=== PATIENT | female | born 1955 | race Caucasian/White ===

== ENCOUNTER → 2023-07-26 07:34 | Outpatient (CLI) | payer MEDICARE, SELFPAY ==
--- NOTE | 2023-07-26 | DI.NM.S_ITS ---
PROCEDURE: NM HIDA NO EJECTION FRACTION RADIOPHARMACEUTICAL: 5.5 mCi Tc-99m mebrofenin IV. INDICATIONS: ABD PAIN TECHNIQUE: Following intravenous administration of Tc-99m mebrofenin, sequential anterior abdominal images were obtained through at least 60 minutes. COMPARISON: None. FINDINGS: There is normal tracer uptake and excretion by the liver. There is normal visualization of intrahepatic ducts, common bile duct, and normal tracer excretion into duodenum. Gallbladder was not visualized in the initial 60 minutes. Delayed static images at 3.5- hours also fail to show definitive gallbladder filling. IMPRESSION: Nonfilling of gallbladder. The findings are suspicious for acute cholecystitis. Please correlate with clinical findings. If clinically indicated, ultrasound would be helpful. Dictated by: Harpreet Ramos M.D. on 07/26/2023 at 12:38 Approved by: Harpreet Ramos M.D. on 07/26/2023 at 12:44
== END ==
PROVIDERS: Referring Provider Internal Medicine; Visit Provider Internal Medicine
DX: R10.9 Unspecified abdominal pain (principal)
CPT/HCPCS: 78226; A9537

== ENCOUNTER 2023-09-11 11:52 | Day surgery (SDC) | payer MEDICARE, SELFPAY ==
[2023-09-05 12:03] VITALS: BMI 30.7
[2023-09-11] VITALS (10 sets, daily range): BP systolic 113–137; BP diastolic 54–84; PULSE 62–89; RESP 12–16; TEMP 36.1–36.7; O2SAT 92–96; BMI 29.6
--- NOTE | 2023-09-11 | PATH_ITS ---
[facility] Accession Number: [id number] No. of containers..01 Tissue . 01 Material submitted: . gallbladder - GALLBLADDER . 01 Diagnosis: Gallbladder, Cholecystectomy: Mild, chronic calculous cholecystitis with reactive changes. Negative for dysplasia and malignancy. [facility] 09/25/2023 1425 Local . 01 Electronically signed: . José Miguel García MD, Pathologist NPI- [id number] . 01 Gross description: . The specimen is received in formalin labeled with the patient's name, , and gallbladder, consists of a disrupted gallbladder measuring 10.0 x 2.6 x 2.5 cm with a full thickness defect measuring 1.6 cm in greatest dimension. The serosa is franco and roughened, the cystic duct margin is inked blue, and no pericystic lymph node is identified. The lumen contains multiple yellow faceted calculi measuring up to 2.3 cm in greatest dimension, grossly obstructing the cystic duct, and admixed with red-franco mucoid bile. The mucosa is franco and trabecular with no yellow discoloration, polyps, or lesions identified. The campos average 0.2 cm thick, and petroleum products sales representative sections to include the cystic duct margin and full thickness sections are submitted in cassette A1. ([id number]) /MRV 09/12/2023 1702 Local . 01 Pathologist provided ICD-10: K80.20 . 01 CPT . 414156 Specimen Comment: A courtesy copy of this report has been sent to [phone] Performed at: 01 [facility] [address] [place] [address] [address] [facility], [place], [place] [id number] MD Trung Leon MD Phone: [phone]
--- NOTE | 2023-09-11 12:29 | PM.PREOP ---
Pre-operative Note COVID-19 COVID-19 status: Not tested Interval Note History & Physical reviewed/Exam performed by Physician: Yes Changes to H&P: No ASA Class (for procedural sedation): II
[2023-09-11] MEDS: LACTATED RINGERS 1,000 ML 42 ML IV (12:36)
--- NOTE | 2023-09-11 12:46 | SUR.OPER ---
Supine on padded OR bed, head on pillow, safety belt at thigh, left arm padded and tucked at side. Right arm secured on padded arm board <90 degrees abduction. Legs uncrossed. Padded footboard in place. Tape over blanket to secure lower legs.
[2023-09-11] MEDS: CEFAZOLIN 2 GM/100 ML PREMIX 100 ML IV (13:10)
[2023-09-11] MEDS: BUPIVACAINE 0.5% (PF) 30 ML, EPINEPHrine 0.15 MG INJ (13:24)
--- NOTE | 2023-09-11 15:08 | PM.OP.1 ---
Operative Date/Time/Diagnoses Date of procedure: 09/11/23 Time of procedure: 15:09 Pre-op diagnosis: Symptomatic cholelithiasis Post-op diagnosis: same Procedure & Clinicians Procedure: Laparoscopic cholecystectomy Same procedure as scheduled: Yes Surgeon: Bryn Nance Anesthesia Type: General Operative Notes Procedure in detail: The patient was given preoperative antibiotics. The patient was brought to the operating room and placed on the table in the supine position. General endotracheal anesthesia was induced. The abdomen was prepped and draped. A time-out was performed. We made a 1 cm infraumbilical incision. We dissected down to the base of the umbilical stalk using cautery. We grasped the umbilical stalk with a Radha clamp to elevate the abdominal wall. We scored the fascia in the midline with cautery. We pierced the peritoneum with a Peon clamp. The Carmine port was placed and the abdomen was insufflated to 15 mmHg. A 5 mm 30 degree laparoscopic was inserted. There was no evidence of any injury from the entry. Next, we placed 5 mm ports in the subxiphoid position and right upper quadrant at the midclavicular line and anterior axillary line. The patient was then positioned in reverse Trendelenburg and the table was tilted to the left. The gallbladder was grasped at the dome and retracted cephalad. There were extensive adhesions of visceral adipose tissue over the gallbladder. These were dissected off the gallbladder using a combination of cautery and blunt dissection. We then dissected the cystic structures with a combination of hook cautery and blunt dissection. There was evidence of a large stone impacted in the infundibulum. Gallbladder did tear and attempt was made to pull the stone out with a tenaculum grasper but it was firmly lodged in the infundibulum. Eventually we were able to dissect around the infundibulum and cystic duct. We placed clips on the cystic duct and artery and divided the cystic duct and artery sharply between the clips. The gallbladder was then dissected off the liver and placed in a specimen retrieval bag. We irrigated the right upper quadrant and all the aspirate returned clear. We then removed the 5 mm ports under direct vision we removed the Carmine port. We then injected some local into the fascia and closed the fascia with 2 interrupted 0 Vicryl sutures. The skin incisions were closed with 4-0 Monocryl and Steri-Strips were applied. Band-Aids were applied over the Steri-Strips. EBL: 20 mL Specimen: Gallbladder and contents Post-operative Condition: stable Disposition: PACU
[2023-09-11] MEDS: ONDANSETRON 4 MG/2 ML INJ IV (15:18)
[2023-09-11] MEDS: OXYCODONE/ACETAMINOPHEN 5/325 TABLET 1 TAB PO (15:18)
[2023-09-11] MEDS: HYDROMORPHONE 1 MG INJ IV ×2 (15:39→15:47)
[2023-09-11] MEDS: PROMETHAZINE 25 MG TABLET 12.5 MG PO (15:42)
== END 2023-09-11 16:20 | disposition home or self-care (01) ==
PROVIDERS: PCP Internal Medicine; Referring Provider Surgery; Visit Provider Surgery
PROC: 0FT44ZZ Resection of Gallbladder, Percutaneous Endoscopic Approach (ICD-10-PCS; CPT 47562; principal; 2023-09-11 13:15)
DX: K80.10 Calculus of gallbladder with chronic cholecystitis without obstruction (principal); I48.91 Unspecified atrial fibrillation; Z79.01 Long term (current) use of anticoagulants
CPT/HCPCS: 47562; J0171; J0690; J1100; J1170; J2250; J2405; J3010

== ENCOUNTER 2023-12-08 16:04 | Emergency (ER) | payer MEDICARE, SELFPAY ==
[2023-12-08] VITALS (10 sets, daily range): BP systolic 124–147; BP diastolic 63–76; PULSE 79–91; RESP 11–18; TEMP 36.4; O2SAT 94–97; BMI 32.6
[2023-12-08 16:42] LABS: Add Manual Diff / Slide Review NO; Basophils Absolute Auto 100 /uL (0-100); Basophils Percent Auto 0.6 % (0-2); Eosinophils Absolute Auto 100 /uL (0-450); Eosinophils Percent Auto 1.2 % (2-4); Hematocrit 39.7 % (36-46); Hemoglobin 13.3 g/dL (12.0-16.0); Lymphocytes Absolute Auto 1700 /uL (1100-4500); Lymphocytes Percent Auto 15.2 % (25-40); Mean Corpuscular HGB Conc 33.4 % (30-36); Mean Corpuscular Hemoglobin 28.6 PG (26-34); Mean Corpuscular Volume 85.7 fL (80-100); Monocytes Absolute Auto 600 /uL (0-900); Monocytes Percent Auto 5.6 % (3-14); Neutrophils Absolute Auto 8800 /uL (1500-7000); Neutrophils Percent Auto 77.4 % (50-75); Platelet Count 226 X10^3/uL (150-400); Red Blood Cell Count 4.64 X10^6/uL (4.0-5.2); Red Cell Distribution Width 13.5 % (11.6-14.8); White Blood Cell Count 11.4 X10^3/uL (4.5-11.0)
[2023-12-08 16:44] LABS: Alanine Aminotransferase 130 IU/L (<35); Albumin 4.4 g/dL (3.5-5.0); Albumin Globulin Ratio 1.4 (1.0-2.8); Alkaline Phosphatase 117 U/L (38-126); Blood Urea Nitrogen 15 mg/dL (7-17); Calcium 9.4 mg/dL (8.4-10.2); Carbon Dioxide 27 mmol/L (22-32); Chloride 97 mmol/L (98-107); Estimated Glomerular Filt Rate > 60 mL/min (>60); Globulin 3.2 g/dL (1.7-4.1); Glucose 161 mg/dL (80-110); INR 1.1 (0.9-1.3); Lipase 128 U/L (23-300); Prothrombin Time 12.9 SECONDS (9.4-12.5); Sodium 134 mmol/L (137-145); Total Protein 7.6 g/dL (6.3-8.2)
[2023-12-08 16:45] LABS: HEMOLYSIS 57 (0-50)
[2023-12-08 16:46] LABS: Potassium 4.4 mmol/L (3.4-5.1)
[2023-12-08 16:47] LABS: Aspartate Aminotransferase 294 IU/L (14-36)
--- NOTE | 2023-12-08 17:38 | DI.CT.S_ITS ---
PROCEDURE: CT ABDOMEN PELVIS W CON INDICATIONS: RUQ PAIN, ELEVATED LIVER ENZYMES TECHNIQUE: After the administration of intravenous contrast, axial sections acquired from the lung bases to the pubic symphysis. Coronal and sagittal reformats were performed. For radiation dose reduction, the following was used: automated exposure control, adjustment of mA and/or kV according to patient size. COMPARISON: None. FINDINGS: Image quality: Diagnostic. Lower Chest: No significant findings. ABDOMEN: Liver: No solid mass. Gallbladder: Cholecystectomy. Biliary ducts: The common bile duct measures up to 11 mm, which is likely within normal limits for a post cholecystectomy patient. Pancreas: No ductal dilation. Spleen: Size is within normal limits. Adrenal Glands: No adrenal nodules. Kidneys and Ureters: No hydronephrosis. No solid mass. No complex renal cystic lesion which requires follow up. Stomach and Bowel: This patient has bowel malrotation, with the duodenum not crossing the midline proximally. The small bowel is largely seen on the right and the colon is largely seen on the left. No dilated loops of small bowel are seen. The cecum is not dilated. The stool burden within the colon is not excessive. Distal colonic diverticulosis is seen, without findings of active diverticulitis. The stomach is decompressed at the time of this study, limiting its evaluation. Peritoneum: No abnormal intraperitoneal fluid. No free air. Ventral Wall: No significant ventral hernia. Abdominal Nodes: No retroperitoneal or mesenteric adenopathy by size criteria. Vessels: Aorta and inferior vena cava are normal in size. The superior mesenteric vein is seen anterior and to the left of the superior mesenteric artery. PELVIS: Pelvic Organs: The uterus appears normal for age. No adnexal masses are seen. The IUD is seen at its expected location. Bladder: No bladder wall thickening, accounting for underdistention. Pelvic Nodes: No enlarged lymph nodes. Miscellaneous: No inguinal hernias are seen. Bones: No aggressive osseous abnormality. Focal L5-S1 degenerative change is seen. Milder degenerative changes are seen elsewhere. IMPRESSION: Status post cholecystectomy, without biliary dilatation. Note is made of bowel malrotation, with the small bowel largely seen on the right and the colon largely seen on the left. There is reversal of the superior mesenteric vein and superior mesenteric artery. Additional findings: Diverticulosis, without active diverticulitis The IUD is seen at its expected location. Focal L5-S1 degenerative change Dictated by: Diomedes Welsh M.D. on 12/08/2023 at 17:31 Approved by: Diomedes Welsh M.D. on 12/08/2023 at 17:36
--- NOTE | 2023-12-08 17:49 | ED_ITS ---
HPI - Abdominal Pain General Chief Complaint: Abdominal Pain Stated Complaint: Upper abd pain/ back pain/ vomiting Time Seen by Provider: 12/08/23 17:37 Source: patient Mode of arrival: EMS History of Present Illness HPI narrative: 68-year-old female with history of atrial fibrillation presents for right upper quadrant abdominal pain with nausea and vomiting that began earlier this afternoon. Patient states that she drank a protein shake, which she has had in the past, and afterwards felt very severe right-sided pain and threw up. States she still has mild right sided pain. Previous cholecystectomy in August of 2023, which she has been recovering from without difficulty. Related Data Home Medications Medication Instructions Recorded Confirmed diltiazem HCl 120 mg 120 mg PO ONCE 09/05/23 12/08/23 capsule,extended release 12 hr diltiazem HCl 240 mg 240 mg PO DAILY 09/05/23 12/08/23 capsule,extended release 24 hr fluoxetine 20 mg tablet 20 mg PO DAILY 09/05/23 12/08/23 trazodone 100 mg tablet 100 mg PO DAILY 09/05/23 12/08/23 diphenhydramine HCl 25 mg tablet 25 mg PO DAILY 09/11/23 12/08/23 dabigatran etexilate 150 mg capsule 150 mg PO BID 12/08/23 12/08/23 rosuvastatin 10 mg tablet 10 mg PO QPM 12/08/23 12/08/23 Previous Rx's Medication Instructions Recorded ondansetron 4 mg disintegrating 4 mg PO Q8H PRN nausea and 12/08/23 tablet vomiting #30 tabs tramadol 50 mg tablet 50 mg PO Q8H PRN pain #14 tabs 12/08/23 Allergies Allergy/AdvReac Type Severity Reaction Status Date / Time ibuprofen Allergy Verified 12/08/23 16:27 Penicillins Allergy Verified 12/08/23 16:27 Review of Systems Review of Systems Narrative: Negative except as noted above Patient History Medical History History of gestational diabetes Diabetes Diverticulosis History of COVID-19 Hx of ectopic Depression Anxiety Atrial fibrillation Surgical History Hx laparoscopic cholecystectomy H/O wrist surgery H/O section Family History Mother Hypertension Heart disease Stroke Cancer Social History Smoking Status: Never smoker Smoking Status: Never smoker alcohol intake frequency: holidays/special occasions only Substance Use Type: does not use Exam Initial Vital Signs Initial Vital Signs: Vital Signs Pulse Rate 85 12/08/23 16:08 Pulse Oximetry 97 12/08/23 16:08 Const: Awake, alert, no acute distress, nontoxic appearing Cardiac: regular rate, regular rhythm RESP: unlabored, clear bilaterally, no wheezing GI: Atraumatic, soft, nontender, nondistended, negative murphys's sign MSK: Atraumatic, full range of motion, pulses equal Skin: Warm, Dry, intact, no rashes Neuro: AO x3, CN II-XII grossly intact, moves all extremities Psych: affect normal, mood normal, not suicidal, not homicidal Course Orders Ordered: ED Orders 12/08/23 16:15 Complete Blood Count AUTO DIFF Stat Comprehensive Metabolic Panel Stat Lipase Stat Prothrombin Time INR Stat 12/08/23 16:18 EKG-12 Lead Stat 12/08/23 17:38 CT abdomen pelvis w con Stat Discontinued Medications Ondansetron HCl (Ondansetron 4 Mg Odt) 4 mg PO NOW PRN PRN Reason: Nausea And Vomiting Ondansetron HCl (Ondansetron 4 Mg/2 Ml Inj) 4 mg IV NOW PRN PRN Reason: Nausea And Vomiting Vital Signs Vital signs: Vital Signs - 8 hr 12/08/23 16:08 12/08/23 16:09 12/08/23 16:09 Temperature Pulse Rate 85 79 Respiratory Rate Blood Pressure 147/73 H Pulse Oximetry 97 97 Oxygen Delivery Method 12/08/23 16:19 12/08/23 16:30 12/08/23 17:00 Temperature 97.6 F Pulse Rate 83 82 85 Respiratory Rate 18 11 L 12 Blood Pressure 147/73 H Pulse Oximetry 97 96 96 Oxygen Delivery Method Room Air 12/08/23 17:18 12/08/23 17:18 12/08/23 17:30 Temperature Pulse Rate 83 Respiratory Rate 15 Blood Pressure 134/76 124/69 Pulse Oximetry 95 Oxygen Delivery Method 12/08/23 17:30 12/08/23 17:58 12/08/23 17:58 Temperature Pulse Rate 82 80 Respiratory Rate 13 16 Blood Pressure 133/63 Pulse Oximetry 94 97 Oxygen Delivery Method 12/08/23 18:00 12/08/23 18:00 12/08/23 18:30 Temperature Pulse Rate 87 Respiratory Rate 14 Blood Pressure 128/71 138/63 Pulse Oximetry 97 Oxygen Delivery Method 12/08/23 18:30 Temperature Pulse Rate 91 H Respiratory Rate 13 Blood Pressure Pulse Oximetry 95 Oxygen Delivery Method MDM - Abdominal Pain Differential Diagnosis Differential diagnosis: Likely abdominal pain, acute appendicitis and calculus of kidney Lab Data 12/08/23 16:15 12/08/23 16:15 Labs: Lab Results 12/08/23 Range/Units 16:15 WBC 11.4 H (4.5-11.0) X10^3/uL RBC 4.64 (4.0-5.2) X10^6/uL Hgb 13.3 (12.0-16.0) g/dL Hct 39.7 (36-46) % MCV 85.7 (80-100) fL MCH 28.6 (26-34) PG MCHC 33.4 (30-36) % RDW 13.5 (11.6-14.8) % Plt Count 226 (150-400) X10^3/uL Neut % (Auto) 77.4 H (50-75) % Lymph % (Auto) 15.2 L (25-40) % [place] % (Auto) 5.6 (3-14) % Eos % (Auto) 1.2 L (2-4) % Baso % (Auto) 0.6 (0-2) % Neut # (Auto) 8800 H (0297-2383) /uL Lymph # (Auto) 1700 (9357-7173) /uL [place] # (Auto) 600 (0-900) /uL Eos # (Auto) 100 (0-450) /uL Baso # (Auto) 100 (0-100) /uL PT 12.9 H (9.4-12.5) SECONDS INR 1.1 (0.9-1.3) Sodium 134 L (137-145) mmol/L Potassium 4.4 (3.4-5.1) mmol/L Chloride 97 L (98-107) mmol/L Carbon Dioxide 27 (22-32) mmol/L BUN 15 (7-17) mg/dL Creatinine 0.60 (0.52-1.04) mg/dL Estimated GFR > 60 (>60) mL/min BUN/Creatinine Ratio 25.0 H (6-22) Glucose 161 H (80-110) mg/dL Calcium 9.4 (8.4-10.2) mg/dL Total Bilirubin 1.0 (0.2-1.3) mg/dL AST 294 H (14-36) IU/L ALT 130 H (<35) IU/L Alkaline Phosphatase 117 (38-126) U/L Total Protein 7.6 (6.3-8.2) g/dL Albumin 4.4 (3.5-5.0) g/dL Globulin 3.2 (1.7-4.1) g/dL Albumin/Globulin Ratio 1.4 (1.0-2.8) Lipase 128 (23-300) U/L [facility] Narrative Medical decision making narrative: Well-appearing patient with right upper quadrant pain and vomiting prior to arrival. On my exam patient resting comfortably in bed, abdomen is soft, there is no reproducible tenderness to light or deep palpation, no peritoneal signs. We will order laboratory work and CT imaging. Laboratory work shows WBC 11.4, could be stress reaction secondary to vomiting. Electrolytes within normal limits, there is elevation in patient's liver enzymes with AST 294 and ALT 130. There are no priors for comparison. CT of the abdomen and pelvis reviewed, no acute abnormalities identified. Incidental note made of malrotation of the intestines. Discussed case with on-call general surgeon Dr. Elias, who said this was an incidental finding and in very low body weight patient's this may cause chronic abdominal pain, but in a patient with a BMI of 33 this is unlikely related to her symptoms. Patient has been informed of all lab and imaging findings. No obvious cause of symptoms found at this time, however no indication for hospitalization. Patient informed of her elevated liver enzymes, she states that she will follow with her primary care physician on Sunday morning and will bring up the liver enzymes to her physician. Patient counseled to return to the emergency department if her pain returns or worsens. ED return precautions discussed at bedside. Patient expressed understanding of the plan and is in agreement at this time. All questions answered at the time of discharge. Discharge Plan Departure Patient Disposition: Home Clinical Impression: Abdominal pain, Elevated liver enzymes Instructions: DI for Abdominal Pain-Adult Activity Restrictions/Additional Instructions: I do not know the cause of your abdominal pain. Your liver enzymes are slightly elevated, I do not have any priors for comparison. Your CT did not show any abnormalities to explain your right upper quadrant pain. Please follow up with your primary care physician regarding your liver enzymes. If you notice return of your symptoms or if they worsen please return to the emergency department for repeat evaluation. Prescriptions: New tramadol 50 mg tablet 50 mg PO Q8H PRN (Reason: pain) Qty: 14 0RF ondansetron 4 mg tablet,disintegrating 4 mg PO Q8H PRN (Reason: nausea and vomiting) Qty: 30 0RF No Action diltiazem HCl 240 mg capsule,extended release 24hr 240 mg PO DAILY diltiazem HCl 120 mg capsule,extended release 12 hr 120 mg PO ONCE fluoxetine 20 mg tablet 20 mg PO DAILY trazodone 100 mg tablet 100 mg PO DAILY diphenhydramine HCl 25 mg Tablet 25 mg PO DAILY dabigatran etexilate 150 mg Capsule 150 mg PO BID rosuvastatin 10 mg tablet 10 mg PO QPM Referrals: Rajesh Mcconnell MD [Primary Care Provider] - Stand Alone Forms: Patient Portal/API
== END 2023-12-08 19:11 | disposition home or self-care (01) ==
PROVIDERS: Emergency Medicine; Emergency Provider Emergency Medicine; PCP Internal Medicine
DX: R10.11 Right upper quadrant pain (principal); R74.8 Abnormal levels of other serum enzymes; R11.2 Nausea with vomiting, unspecified
CPT/HCPCS: 74177; 80053; 83690; 85025; 85610; 93005; 99281; 99284; Q9967

== ENCOUNTER → 2023-12-31 07:03 | Outpatient (CLI) | payer MEDICARE, SELFPAY ==
--- NOTE | 2023-12-31 07:58 | DI.MRI.S_ITS ---
PROCEDURE: MR ABDOMEN LIVER PROTOCOL INDICATIONS: Abnormal results of liver function studies TECHNIQUE: Coronal HASTE, axial 2D FLASH in- and iid-uj-qcoys; axial breath-hold T2 FSE. Dynamic axial VIBE during the administration of contrast; post-contrast coronal VIBE or 2D FLASH with fat saturation from the hepatic dome to the iliac crests. Optional diffusion weighted imaging and ADC may be performed. COMPARISON: [facility], CT, CT ABDOMEN PELVIS W CON, 12/08/2023, 17:49. FINDINGS: Image quality: Diagnostic. Lung bases: Right lung base atelectasis. No pleural effusion. Tiny hiatal hernia. Liver: No solid mass. No suspicious enhancement or restricted diffusion. Gallbladder: Absent. Biliary ducts: Within normal limits in this post cholecystectomy patient. No filling defect. Pancreas: No ductal dilation. Tiny cyst at the body measuring 0.4 cm, (03/14). Spleen: Size is within normal limits. Adrenal Glands: No adrenal nodules. Kidneys and Ureters: No hydronephrosis. No solid mass. No complex renal cystic lesion which requires follow up. Stomach and Bowel: Normal colonic caliber, without significant wall thickening. Diverticulosis. Bowel malrotation. Peritoneum: No abnormal intraperitoneal fluid. No free air. Ventral Wall: No hernia. Abdominal Nodes: No retroperitoneal or mesenteric adenopathy by size criteria. Vessels: Aorta and inferior vena cava are normal in size. Bones: No aggressive osseous abnormality. IMPRESSION: 1. No focal liver lesion. 2. Post cholecystectomy. Bile ducts are within normal limits. 3. No pancreatic ductal dilatation. Tiny cyst in the body of the pancreas measuring 0.4 cm. 4. Bowel malrotation. Tiny hiatal hernia. Dictated by: Denys Aquino M.D. on 12/31/2023 at 8:33 Approved by: Denys Aquino M.D. on 12/31/2023 at 8:44
== END ==
LOC: MRI 07:03
PROVIDERS: PCP Internal Medicine; Referring Provider Internal Medicine; Visit Provider Internal Medicine
DX: R94.5 Abnormal results of liver function studies (principal); K57.90 Diverticulosis of intestine, part unspecified, without perforation or abscess without bleeding; Z90.49 Acquired absence of other specified parts of digestive tract
CPT/HCPCS: 74183; A9579

== ENCOUNTER → 2025-03-06 10:03 | Outpatient (CLI) | payer OTHER, SELFPAY ==
[2025-03-06 10:50] LABS: Add Manual Diff / Slide Review NO; Basophils Absolute Auto 0 /uL (0-100); Basophils Percent Auto 0.8 % (0-2); Eosinophils Absolute Auto 200 /uL (0-450); Eosinophils Percent Auto 3.1 % (2-4); Hematocrit 38.8 % (36-46); Hemoglobin 13.1 g/dL (12.0-16.0); Lymphocytes Absolute Auto 1800 /uL (1100-4500); Lymphocytes Percent Auto 30.7 % (25-40); Mean Corpuscular HGB Conc 33.7 % (30-36); Mean Corpuscular Hemoglobin 29.5 PG (26-34); Mean Corpuscular Volume 87.6 fL (80-100); Monocytes Absolute Auto 500 /uL (0-900); Monocytes Percent Auto 7.9 % (3-14); Neutrophils Absolute Auto 3400 /uL (1500-7000); Neutrophils Percent Auto 57.5 % (50-75); Platelet Count 251 X10^3/uL (150-400); Red Blood Cell Count 4.42 X10^6/uL (4.0-5.2); Red Cell Distribution Width 13.5 % (11.6-14.8); White Blood Cell Count 5.9 X10^3/uL (4.5-11.0)
[2025-03-06 10:57] LABS: Hemoglobin A1C% w Est Avg Glu 6.7 % (4.0-6.0)
[2025-03-06 11:15] LABS: Alanine Aminotransferase 24 IU/L (<35); Albumin 4.4 g/dL (3.5-5.0); Albumin Globulin Ratio 1.9 (1.0-2.8); Alkaline Phosphatase 76 U/L (38-126); Aspartate Aminotransferase 25 IU/L (14-36); BUN Creatinine Ratio 16.4 (6-22); Bilirubin Total 0.5 mg/dL (0.2-1.3); Blood Urea Nitrogen 11 mg/dL (7-17); Calcium 10.1 mg/dL (8.4-10.2); Carbon Dioxide 29 mmol/L (22-32); Chloride 96 mmol/L (98-107); Cholesterol 145 mg/dL (140-199); Estimated Glomerular Filt Rate > 60 mL/min (>60); Globulin 2.3 g/dL (1.7-4.1); Glucose 207 mg/dL (70-99); HDL Cholesterol 69 mg/dL (40-60); HEMOLYSIS < 15 (0-50); LDL Cholesterol Calculated 59 mg/dL (<100); Potassium 5.2 mmol/L (3.4-5.1); Sodium 132 mmol/L (137-145); Total Protein 6.7 g/dL (6.3-8.2); Triglycerides 86 mg/dL (35-150)
== END ==
PROVIDERS: PCP Student in an Organized Health Care Education/Training Program; Referring Provider Student in an Organized Health Care Education/Training Program; Visit Provider Student in an Organized Health Care Education/Training Program
DX: R63.5 Abnormal weight gain (principal); R73.03 Prediabetes; Z86.32 Personal history of gestational diabetes
CPT/HCPCS: 36415; 80053; 80061; 83036; 84443; 85025

== ENCOUNTER → 2025-04-15 10:48 | Outpatient (CLI) | payer OTHER, SELFPAY ==
--- NOTE | 2025-04-16 17:13 | DIAB.MNT ---
Initial Diabetes Medical Nutrition Therapy Assessment Name: Areglia Salazar Date: 04/15/25 Time: [id number] Dx: Type II Diabetes Preferred Learning Style: Listening, Watching, Reading Argelia presents for initial DM visit with , Brendan. Newly diagnosed with hgA1c of 6.7%. Endorses PMH of GDM x 3 pregnancies. Diet managed GDM. Each baby born 9-10#. Endorses FH of DM with brother. Has recent cut out potatoes, bread and focusing on low CHO and higher PRO diet. does most of the cooking and practices intermittent fasting. Started GLP1 for Dm and wt loss. Endorses constipation with BM q 4-5 days. Plans to start Miralax. Endorses difficulty with wt loss for years. In one month has lost 16-17# with GLP1. Has SF fiber gummies she plans to start using. Reports questions about ETOH impact on BG. Usually only 1 serving per week unless on vacation. Diet Recall: 10a: sf applesauce with black coffee 12p: zero sugar English yogurt 4p: 5oz protein, salad half the plate, sf jello 5p: sf vanilla pudding with berries water 70oz occasional diet soda or tea Anthropometrics: Ht: 67 Wt: 202# reported 03/2025 Physical Activity: Walks in the house usually x 30 min per day. Less lately. Wanting to restart movement. Current steps per day [id number]. Self-Monitoring Blood Glucose: none. Diabetes Medications: 250mg Metformin daily 1.8mg Liraglutide weekly Pertinent Labs: HgA1c: 6.7% Past Medical History: (Last Updated 03/06/25 @ 15:06 by Dulce Cortés MD) Anxiety Atrial fibrillation Depression Diabetes Type II Diverticulosis History of COVID-19 History of gestational diabetes Hx of ectopic Nutrition Rx: Carbohydrates: Meal:30-45g Snack:15-30g Nutrition Diagnosis: - Predicted inadequate fiber intake r/t stage of change preparation aeb pt report, diet recall - Nutrition and food related knowledge deficit r/t newly dx T2Dm aeb hgA1c 6.7% Intervention: This participant was very receptive. Provided appropriate educational handouts. Discussed the following topics: Completed intake assessment. Discussed barriers to care. Pathophysiology of T2DM HgA1c, its correlation to blood glucose numbers, and rationale for goal Potential for SMBG prn Plate Method, impact of macronutrients on blood sugar, meal timing, carbohydrate counting, pairing macronutrients and spreading out carbohydrates for better blood glucose management Recommended servings for carbohydrates at meals and snacks Intermittent fasting and very low CHo diet pro/cons Sustainability for diet changes Heart health nutrition Role of physical activity and following provider guidelines for safety constipation MNT Fiber foods Created SMART goals for patient self-care and success. Goals: If safe, try 10-15 mins movement per day Aim for nuts 1x per day Add vanessa/hemp seeds in overnight oats Start fiber supplement Continue fluids intake Follow-up: KEYUR WADSWORTH follow-up in 3-4 weeks Flory Steel RDN, DANOES Certified Diabetes Care and Manager Custom P: [phone] Thank you for this referral
== END ==
LOC: DIET 10:48
PROVIDERS: PCP Student in an Organized Health Care Education/Training Program
DX: E11.9 Type 2 diabetes mellitus without complications (principal); Z83.3 Family history of diabetes mellitus; Z71.3 Dietary counseling and surveillance; Z79.84 Long term (current) use of oral hypoglycemic drugs; Z79.85 Long-term (current) use of injectable non-insulin antidiabetic drugs
CPT/HCPCS: 97802

== ENCOUNTER → 2025-05-12 08:52 | Outpatient (CLI) | payer OTHER, SELFPAY ==
--- NOTE | 2025-05-12 08:56 | DIAB.MNTFU ---
Follow-up Diabetes Medical Nutrition Therapy Assessment Name: Argelia Salazar Date: 05/12/25 Time: 90a Dx: Type II Diabetes Argelia presents for follow-up DM visit with , Brendan. Newly diagnosed with hgA1c of 6.7%. Endorses PMH of GDM x 3 pregnancies. Diet managed GDM. Each baby born 9-10#. Endorses FH of DM with brother. Still a little nausea and constipation. BM q 2 days, improved from last visit. Started fiber gummy. Using mirilax. Sometimes using benefiber. Started eating nuts daily. Snacks are usually fruit, sf pudding, nuts. No overnight oats lately. Reduced appetite, likely r/t GLP1. Biggest meal in evening, 3-430p Only injects in abdomen. having a hard time finding new space to inject. Going to [place], [place] in August. Diet Recall: 10a: applesauce with meds black coffee 12p: zero sugar [place] yogurt 330-4p: 5oz protein, salad half the plate, +/- little potatoes 6-8p: sf vanilla pudding with berries water 70oz occasional diet soda or tea Anthropometrics: Ht: 67 Wt: 197# reported 04/2025 202# reported 03/2025 Physical Activity: Walks in the house usually x 30 min per day. More consistent now. Self-Monitoring Blood Glucose: none. Has SMBG supplies. use to check. Diabetes Medications: 250mg Metformin daily 1.8mg Liraglutide weekly Pertinent Labs: HgA1c: 6.7% 02/2025 Past Medical History: (Last Updated 03/06/25 @ 15:06 by Dulce Cortés MD) Anxiety Atrial fibrillation Depression Diabetes Type IIDiverticulosis History of COVID-19 History of gestational diabetes Hx of ectopic Nutrition Rx: Carbohydrates: Meal:30-45gSnack:15-30g Nutrition Diagnosis: - Predicted inadequate fiber intake r/t stage of change preparation aeb pt report, diet recall- improved/in progress - Nutrition and food related knowledge deficit r/t newly dx T2Dm aeb hgA1c 6.7%- improved/in progress Intervention: This participant was very receptive. Provided appropriate educational handouts. Discussed the following topics: Completed intake assessment. Discussed barriers to care. Potential for SMBG prn Recommended servings for carbohydrates at meals and snacks Eating on vacation Physical activity constipation MNT Fiber foods Diabetes resources Reducing risks for DM related complications Injection sites and technique Created SMART goals for patient self-care and success. Goals: If safe, try 10-15 mins movement per day - met Aim for nuts 1x per day - met Add vanessa/hemp seeds in overnight oats - in progress Start fiber supplement - met Continue fluids intake - met Try injecting into a new site- new Beans once per week for more fiber- new Follow-up: KEYUR WADSWORTH follow-up in 3 months per pt request. Encouraged her to call or message for sooner follow-up prn. Flory Steel RDN, [facility] Certified Diabetes Care and Operations Asst P: [phone] Thank you for this referral
== END ==
LOC: DIET 08:52
PROVIDERS: PCP Student in an Organized Health Care Education/Training Program; Referring Provider Student in an Organized Health Care Education/Training Program
DX: E11.9 Type 2 diabetes mellitus without complications (principal); Z71.3 Dietary counseling and surveillance; Z83.3 Family history of diabetes mellitus; Z86.32 Personal history of gestational diabetes; Z79.84 Long term (current) use of oral hypoglycemic drugs; Z79.85 Long-term (current) use of injectable non-insulin antidiabetic drugs
CPT/HCPCS: 97803